=== PATIENT | female | born 1990 | race Caucasian/White ===

== ENCOUNTER 2016-09-08 01:14 | Emergency (ER) | payer SELFPAY ==
[2016-09-08] MEDS ORDERED: NO HOME MEDICATION XX (01:27)
== END 2016-09-08 02:28 ==
LOC: EDMED 01:14
PROC: 0HQ1XZZ Repair Face Skin, External Approach (ICD-10-PCS; principal; 2016-09-08)
DX: S01.112A Laceration without foreign body of left eyelid and periocular area, initial encounter (principal); S00.81XA Abrasion of other part of head, initial encounter; V49.50XA Passenger injured in collision with unspecified motor vehicles in traffic accident, initial encounter